=== PATIENT | female | born 1965 | race African-American/Black ===

== ENCOUNTER 2017-06-28 15:43 | Emergency (ER) | payer OTHER ==
[~2017-06-28] VITALS: Ht 162.6 cm; Wt 79.8 kg
[2017-06-28 15:47] VITALS: Ht 162.6 cm; Wt 79.8 kg
[2017-06-28 17:02] LABS: BASOPHIL % 0.8 % (0-2); PLATELET COUNT 320 x10^3mcL (130-400)
[2017-06-28 17:36] LABS: ALKALINE PHOSPHATASE 67 U/L (46-116); ALT/SGPT 38 U/L (14-59); AST/SGOT 23 U/L (15-37); BILIRUBIN TOTAL 0.22 mg/dL (0.20-1.00); CALCIUM 8.9 mg/dL (8.5-10.1); CARBON DIOXIDE 22.6 mmol/L (21-32); CHLORIDE SERUM 108 mmol/L (98-107); CHOLESTEROL 142 mg/dL (<200); GFR1 > 60 mL/min; GLUCOSE SERUM 88 mg/dL (74-106); HDL CHOLESTEROL 55 mg/dL (40-60); PHOSPHOROUS 3.5 mg/dL (2.5-4.9); SODIUM SERUM 144 mmol/L (136-145); URIC ACID 4.5 mg/dL (2.6-6.0)
[2017-06-28 17:39] LABS: TOTAL PROTEIN, SERUM 8.5 g/dL (6.4-8.2)
[2017-06-28 18:14] VITALS: BP 150/85
[2017-06-28 22:25] LABS: POTASSIUM SERUM 2.9 mmol/L (3.5-5.1)
== END 2017-06-28 18:18 | disposition home or self-care (01) ==
LOC: ED 15:43 → EDBD 15:43 → ED 18:18
PROVIDERS: Emergency Medicine
DX: R07.89 Other chest pain (principal); E07.9 Disorder of thyroid, unspecified; I50.9 Heart failure, unspecified; Z88.6 Allergy status to analgesic agent; Z88.5 Allergy status to narcotic agent
CPT/HCPCS: 36415; 83880; Q0092; Q0162